=== PATIENT | male | born 1975 | race African-American/Black ===

== ENCOUNTER → 2021-10-19 | Outpatient (CLI) | payer BC, MEDICAID, SELFPAY ==
[2021-10-19 10:36] LABS: Amphetamine Urine VISTA NEGATIVE (<1000 ng/mL); Barbiturate Urine VISTA NEGATIVE (< 200 ng/mL); Benzodiazepine Urine VISTA NEGATIVE (< 200 ng/mL); Cocaine Urine VISTA NEGATIVE (< 300 ng/mL); Ecstacy Urine VISTA NEGATIVE (< 500 ng/mL); Methadone Urine VISTA NEGATIVE (< 300 ng/mL); PCP Urine VISTA NEGATIVE (< 25 ng/mL); THC Urine VISTA NEGATIVE (< 50 ng/mL); Vista UDS pH Range 6
== END | disposition home or self-care (01) ==
PROVIDERS: Referring Provider Anesthesiology Pain Medicine; Visit Provider Anesthesiology Pain Medicine
DX: F11.20 Opioid dependence, uncomplicated (principal)
CPT/HCPCS: 80307

== ENCOUNTER 2022-08-03 18:00 | Outpatient (RCR) | payer BC, MEDICAID, SELFPAY ==
--- NOTE | 2022-07-11 18:32 | HP.PTEVAL ---
Patient's Visit Information EJSSE JAUREGUI Jr. is a 47 year old M referred to Physical Therapy by GILBERT Waters with a diagnosis of INTERVERTEBRAL DISC DISPLACEMENT,LUMBOSACRAL,SPONDYLOSIS W/O RADICULOPATHY. Date of Evaluation: 07/11/22 Physical Therapist: Faisal Licea, PT, Cert MDT, OCS - Visit Plan Frequency: 2x /Week Duration: 4 Weeks Plan: PT INTERVETIONS DLS ,POSTURAL EX'S ,POSTURE TRAINING ,LE FLEXABILITY AND MODALTIES FOR PAIN RELEIVE - Subjective This 47 y/o male presents to physical therapy with lumbar pain. Patient lumbar pain many years . Initially ,noticed pain after getting out of . Patient has been under pain management for~ 2 year but ablation 04/[address] Marcos recommended consult to DR Blanco but wants a MRI . Suspects HNP which patient has had MRI in past. Patient takes tramadol. Location pain symmetrical lumbar occasional radiates in right leg. Aggravating factors lifting ,bending ,sitting . Alleviating meds and heat. Denies paresthesia/tingling. legs give way occasional. Coughing /sneezing +. Bowel/bladder-. Patient pain affects sleeping. No abnormal night pain. Patient has had PT in past has not helped and chiropractor. Patient goals have no pain. SOCAIL: . 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 PALAPTION: unremarkable. NEURO: denies paresthesia/tingling, reflexes L3-4,L4-5,L5-S1 1/3. GAIT: reciprocal pattern. MMT: quads/hams/4/5 ,hip flexion right 3+/5 ,left 4-/5 ,ankle 5/5. LUMBAR ROM: flexion min loss ,extension min loss , side glides min loss. FLEXABILITY: hamstrings mod limited - Special Tests L/S Slump test left side: Positive L/S Slump test right side: Positive L/S Left Straight Leg Raise: Positive L/S Right Straight Leg Raise: Positive Lumbar Standing: Flexion - Mechanical Response: No effect Lumbar Standing: Flexion - Symptoms During Testing: Increases Lumbar Standing: Flexion - Symptoms After Testing: Worse Lumbar Standing: Extension - Mechanical Response: No effect Lumbar Standing: Extension - Symptoms During Testing: Increases Lumbar Standing: Extension - Symptoms After Testing: Worse Lumbar Standing: Right Side Glides - Mechanical Response: No effect Lumbar Standing: Right Side [place] - Symptoms During Testing: No effect Lumbar Standing: Right Side [place] - Symptoms After Testing: No effect Lumbar Standing: Left Side [place] - Mechanical Response: No effect Lumbar Standing: Left Side [place] - Symptoms During Testing: No effect Lumbar Standing: Left Side [place] - Symptoms After Testing: No effect Lumbar Lying: Flexion - Mechanical Response: No effect Lumbar Lying: Flexion - Symptoms During Testing: Increases Lumbar Lying: Flexion - Symptoms After Testing: Worse Lumbar Lying: Extension - Mechanical Response: No effect Lumbar Lying: Extension - Symptoms During Testing: Increases Lumbar Lying: Extension - Symptoms After Testing: Worse - Balance/Special Test Scores Oswestry Low Back Score: 21 - Goals Goal 1:: Patient is I with HEP for lumbar spine. Goal Time Frame: 4-6 Weeks Goal 2:: Patient to improve posture/body mechanics 90% of the time. Goal Time Frame: 4-6 Weeks Goal 3:: Patient to demonstrate 50% improvement with decrease pain and improved function. Goal Time Frame: 4-6 Weeks Goal 4:: Patient improve lumbar ROM for function of recovery for job demands. Goal Time Frame: 4-6 Weeks Goal 5:: Patient to improve back oswestry score by 5 points to improve QOL. Goal Time Frame: 4-6 Weeks - Rehabilitation Potential Physical Therapy Diagnosis: This patient has h/o HNP with pain with positioning and motion testing ,worse with bending ,lifting and sitting affects ADLS and job demands thus benefit from skilled PT Rehabilitation Potential: Good - Anticipated Interventions Patient/Client Instruction: Educate patient on: Condition, Plan of Care For the Purpose of:: To decrease pain, To increase ROM, To improve muscle performance and motor function, To improve ability to perform ADL's, To increase tolerance to activity/condition/position, To improve performance and independence with ADL's, To improve ability of physical actions for home/community/work/leisure, To improve health of tissue, To decrease soft tissue restriction, To increase flexibility/ROM, To prevent re-injury Therapeutic Exercise to Include: Strength training, Body mechanics, Postural training, Flexibilty training, Dynamic Lumbar Stabilization, [place] Exercises For the Purpose of:: To decrease pain, To increase ROM, To improve muscle performance and motor function, To improve ability to perform ADL's, To increase tolerance to activity/condition/position, To improve ability of physical actions for home/community/work/leisure, To improve gait and locomotor functions, To improve health of tissue, To increase flexibility/ROM TENS: Yes IF ES: Yes Cryotherapy (ice pack, ice massage): Yes Thermo therapy (hot pack): Yes Ultrasound (thermal/non thermal): Yes For the Purpose of:: To decrease pain, To increase ROM, To improve muscle performance and motor function, To increase tolerance to activity/condition/position, To improve ability of physical actions for home/community/work/leisure, To improve health of tissue, To decrease soft tissue restriction, To increase flexibility/ROM, To prevent re-injury Thank you for the opportunity to evaluate your patient. For Medicare and Medicare HMO plans, please review the plan of care and approve it. It will need to be FAXED BACK to us at [phone] for Medicare purposes. For Medicare only, by signing this I certify the plan of care. Please let me know if there are questions or concerns regarding this plan of care. Physician Signature: Date:
--- NOTE | 2022-12-25 17:51 | HP.PTDCSUM ---
Discharge Summary D/C summary: It has been my pleasure to treat JESSE JAUREGUI Jr. referred by GILBERT Waters, with the diagnosis of INTERVERTEBRAL DISC DISPLACEMENT,LUMBOSACRAL,SPONDYLOSIS W/O RADICULOPATHY for a total of 9 visit(s). Discharge Date: Please see the following information for a summary of their discharge status. Subjective Subjective: Patient reports pain is bad and standing on feet . 12 hrs . Less pain in legs seems better. Pain Bilateral Back: Pain Intensity (Out of 10): 6 Overall Improvement % Improvement: 85 Objective Objective/Function: POSTURE: mild forward posture GAIT: reciprocal pattern LUMBAR ROM: flexion min loss ,extension min loss pain MMT: 5/5 BLE Goals Goal 1:: Patient is I with HEP for lumbar spine. Goal Progress: Goal Met Goal 2:: Patient to improve posture/body mechanics 90% of the time. Goal Progress: Goal Met Goal 3:: Patient to demonstrate 50% improvement with decrease pain and improved function. Goal Progress: Goal Met Goal 4:: Patient improve lumbar ROM for function of recovery for job demands. Goal Progress: Goal Met Goal 5:: Patient to improve back oswestry score by 5 points to improve QOL. Goal Progress: Goal Met Plan Plan: RTD D/C Information d/c sentence: If there are questions or concerns regarding this patient's physical therapy, please feel free to call me at [phone]. Thank you for the referral of this patient. Sincerely, Faisal Licea, PT, Cert MDT, OCS Balance/Gait/Functional tests Balance/Special Test Scores Oswestry Low Back Score: 11
== END 2022-08-03 19:00 | disposition home or self-care (01) ==
LOC: PT 18:00
DX: M51.27 Other intervertebral disc displacement, lumbosacral region (principal); M47.816 Spondylosis without myelopathy or radiculopathy, lumbar region
CPT/HCPCS: 97014; 97110; 97161; G0283

== ENCOUNTER → 2022-08-20 | Outpatient (CLI) | payer BC, MEDICAID, SELFPAY ==
--- NOTE | 2022-08-20 06:24 | MRI_ITS ---
INDICATION: Low back pain. EXAMINATION: MRI - MR Spine Lumbar W/O Contrast TECHNIQUE: Multiplanar and multisequence MR images of the lumbar spine. IV Contrast Dosage and Agent: None. COMPARISON: Radiographs 08/09/2021. FINDINGS: No acute abnormality of the vertebrae. Bilateral L5 spondylolysis with grade 1, 2 mm, anterolisthesis of L5 on S1 and grade 1, 2 mm retrolisthesis of L4 on L5. Mild exaggeration of lumbar lordosis. Alignment otherwise anatomic. Conus terminates at the level of the middle one vertebral body with normal contour and signal. Normal arborization of the cauda equina. At L1-2 and L2-3, mild bilateral facet degeneration causes no significant narrowing. At L3-4, small diffuse disc bulge and moderate bilateral facet degeneration causes only mild narrowing. At L4-5, mild degenerative retrolisthesis, small diffuse disc bulge, and mild facet degeneration causes only mild narrowing. At L5-S1, grade 1 anterolisthesis with unroofing of the disc. Left paracentral disc extrusion oriented slightly cephalad, displaces posteriorly the traversing left S1 nerve root in the subarticular zone. Only mild narrowing of the remainder of the spinal canal and of the foramina. No other nerve root impingement. The paraspinal soft tissues are unremarkable. MRI/Spine Lumbar (Routine) IMPRESSION: At L5-S1, left paracentral disc extrusion displaces posteriorly the traversing left S1 nerve root in the subarticular zone. Bilateral L5 spondylolysis with grade 1, 2 mm, anterolisthesis of L5 on S1 and grade 1, 2 mm, retrolisthesis of L4 on L5. Consider flexion and extension radiographs to assess for mechanical instability which could cause intermittent narrowing. Electronically Signed: Keaton Shelton MD at 8:00 EDT Reading Location ID and State: [address] [place] [address] Tel , Service support ,
== END | disposition home or self-care (01) ==
LOC: MRI 11:10
PROVIDERS: Referring Provider Orthopaedic Surgery; Visit Provider Orthopaedic Surgery
DX: M51.27 Other intervertebral disc displacement, lumbosacral region (principal)
CPT/HCPCS: 72148